=== PATIENT | female | born 1990 | race Caucasian/White ===

== ENCOUNTER 2018-06-03 11:00 | Emergency (ER) | payer OTHER ==
[2018-06-03] MEDS ORDERED: cloNIDine 0.1 MG TAB ONE (12:14)
== END 2018-06-03 12:33 | disposition home or self-care (01) ==
LOC: ERS 11:00
DX: I10 Essential (primary) hypertension (principal); F32.9 Major depressive disorder, single episode, unspecified
CPT/HCPCS: 93005